=== PATIENT | male | born 2005 | race Two or more races ===

== ENCOUNTER 2025-04-15 19:48 | Emergency (ER) | payer OTHER ==
[~2025-04-15 19:48] MED LIST: Iopamidol-370 76% 500 ML MDV (1 ML CHARGE) ONE
[2025-04-15 20:55] LABS: Bacteria/HPF None Seen HPF (None Seen); CAUTI Indications for Culture Acute Hematuria; Glucose, Urine (Dipstick) Normal (Negative); Leukocyte 75 Leu/uL (Negative); Protein, Urine (Dipstick) 100 mg/dL (Neg-Trace); RBC/HPF Greater than 50 HPF (0-3); Specific Gravity, Urine 1.028 (1.002-1.036); WBC/HPF 0-3 HPF (0-3)
[2025-04-15 20:57] LABS: Urine Culture Reflex No No
[2025-04-15 21:43] LABS: #Basophils 0.05 10x3/uL (0.0-0.2); #Eosinophils 0.43 10x3/uL (0.0-0.7); #Monocytes 0.76 10x3/uL (0.11-0.59); #Neutrophils 5.27 10x3/uL (1.40-6.50); %Basophils 0.5 % (0.0-1.0); %Eosinophils 4.7 % (0.0-10.0); %Lymphocytes 29.1 % (28.0-48.0); %Monocytes 8.3 % (0.0-4.0); %Neutrophils 57.2 % (31.0-61.0); Hematocrit 49.7 % (42.0-52.0); Hemoglobin 16.4 g/dL (14.0-18.0); Mean Corpuscular Hemoglobin 29.1 pg (25.0-35.0); Mean Corpuscular Volume 88.1 fL (78.0-98.0); Platelet Count 287 10x3/uL (130-400); Red Blood Cell (RBC) Count 5.64 mill/uL (4.00-5.20); White Blood Cell (WBC) Count 9.21 10x3/uL (4.8-10.8)
[2025-04-15 22:19] LABS: ALT (SGPT) 15 U/L (Less than 45); AST (SGOT) 19 U/L (11-34); Albumin 4.9 g/dL (3.1-4.5); Alkaline Phosphatase 48 U/L (50-130); Anion Gap 16 mmol/L (10-20); BUN (Urea Nitrogen) 7 mg/dL (8.9-20.6); Bilirubin, Total 2.6 mg/dL (0.3-1.2); Calc. Creatinine Clearance 0 mL/min (70-130); Calcium 9.4 mg/dL (7.8-10.44); Carbon Dioxide 26 mmol/L (22-29); Chloride 105 mmol/L (98-107); Globulin 2.3 g/dL (2.4-3.5); Glucose 109 mg/dL (70-105); Potassium 4.0 mmol/L (3.5-5.1); Sodium 143 mmol/L (136-145)
== END 2025-04-15 23:24 | disposition home or self-care (01) ==
LOC: ERS 19:48
DX: N30.01 Acute cystitis with hematuria (principal)
CPT/HCPCS: 36416; 74177; 80053; 81001; 85025; Q9967